=== PATIENT | female | born 1975 | race Caucasian/White ===

== ENCOUNTER 2017-01-16 08:50 | Day surgery (SDC) | payer OTHER ==
[~2017-01-16] VITALS: Ht 165.1 cm; Wt 97.5 kg
[~2017-01-16 08:50] MED LIST: BENADRYL50 MG PO; CLONIDINE HCL0.1 MG PO; ELOCON 0.1% TP; Flagyl PO; GREEN COFFEE B400 MG PO; IBUPROFEN800 MG PO; IMITREX100 MG PO; KLONOPIN1 MG PO; KlonoPIN PO; SEROQUEL100 MG PO; SEROQUEL200 MG PO; SERTRALINE HCL100 MG PO; ZANAFLEX4 M1 PO; ZOLPIDEM TARTRAT5 MG PO; Zoloft PO
== END 2017-01-16 10:55 | disposition home or self-care (01) ==
LOC: PAIN 08:50
DX: M47.816 Spondylosis without myelopathy or radiculopathy, lumbar region (principal); M43.16 Spondylolisthesis, lumbar region; M54.5 Low back pain; M53.3 Sacrococcygeal disorders, not elsewhere classified; M79.1 Myalgia; I10 Essential (primary) hypertension; F41.8 Other specified anxiety disorders; E66.01 Morbid (severe) obesity due to excess calories; Z68.39 Body mass index [BMI] 39.0-39.9, adult
CPT/HCPCS: J1030; J2250; J3010; S0020

== ENCOUNTER 2017-01-20 13:42 | Day surgery (SDC) | payer OTHER ==
[~2017-01-20] VITALS: Ht 165.1 cm; Wt 97.5 kg
== END 2017-01-20 15:55 | disposition home or self-care (01) ==
LOC: PAIN 13:42 → SDC 14:15 → PAIN 15:55
PROC: 015B3ZZ Destruction of Lumbar Nerve, Percutaneous Approach (ICD-10-PCS; principal; 2017-01-20)
DX: M47.816 Spondylosis without myelopathy or radiculopathy, lumbar region (principal); M51.36 Other intervertebral disc degeneration, lumbar region; F41.9 Anxiety disorder, unspecified; M79.1 Myalgia; M53.3 Sacrococcygeal disorders, not elsewhere classified; F31.9 Bipolar disorder, unspecified; E66.01 Morbid (severe) obesity due to excess calories; Z68.39 Body mass index [BMI] 39.0-39.9, adult; I10 Essential (primary) hypertension; Z88.1 Allergy status to other antibiotic agents; Z88.5 Allergy status to narcotic agent; Z88.8 Allergy status to other drugs, medicaments and biological substances
CPT/HCPCS: J1030; J2250; J3010; S0020